=== PATIENT | female | born 1955 | race Caucasian/White ===

== ENCOUNTER 2024-06-01 07:34 | Outpatient (CLI) | payer MEDICARE ==
[2024-06-01] MEDS ORDERED: Iopamidol 370 76% 100 ML VIAL ONE (09:21)
== END 2024-06-01 07:35 | disposition home or self-care (01) ==
LOC: CSHCT 07:34
PROVIDERS: ATTEND Physician Assistant Medical
DX: K92.1 Melena (principal); R10.9 Unspecified abdominal pain
CPT/HCPCS: 74175; 82565; Q9967